=== PATIENT | male | born 1955 | race Caucasian/White ===

== ENCOUNTER 2017-11-17 16:17 | Emergency (ER) | payer MEDICAID ==
[~2017-11-17 16:17] MED LIST: IBUPROFEN
== END 2017-11-17 17:14 | disposition left against medical advice (07) ==
LOC: ED 17:00
DX: M79.671 Pain in right foot (principal); Z53.21 Procedure and treatment not carried out due to patient leaving prior to being seen by health care provider

== ENCOUNTER 2018-01-02 11:08 | Emergency (ER) | payer MEDICAID ==
[~2018-01-02] VITALS: Ht 175.3 cm; Wt 87.2 kg
[2018-01-02] MEDS ORDERED: HYDR25TA6 PO (12:07)
[2018-01-02] MEDS ORDERED: IBUP200C8 PO (12:08)
[2018-01-02 12:28] VITALS: BP 157/107
== END 2018-01-02 12:37 | disposition home or self-care (01) ==
LOC: ED 11:39
DX: M72.2 Plantar fascial fibromatosis (principal); Z87.891 Personal history of nicotine dependence
CPT/HCPCS: 99283

== ENCOUNTER 2020-02-08 04:47 | Emergency (ER) | payer MEDICAID ==
[~2020-02-08] VITALS: Ht 175.3 cm; Wt 78.8 kg
[~2020-02-08 04:47] MED LIST changes: +HYDR25TA6 PO; +IBUP200C8 PO
[2020-02-08 06:00] LABS: BASOPHILS % (AUTO) 2 % (0-1); EOSINOPHILS % (AUTO) 2 % (1-7); LYMPHOCYTES % (AUTO) 23 % (22-44); MEAN CORPUSCULAR HEMOGLOBIN 31.6 pg (27.5-34.5); MEAN CORPUSCULAR HGB CONC 34.3 g/dL (33.2-36.2); MONOCYTES % (AUTO) 10 % (2-9); NEUTROPHILS % (AUTO) 63 % (42-75); PLATELET COUNT 136 x10^3/uL (130-400); RED BLOOD COUNT 4.29 x10^6/uL (4.38-5.82); RED CELL DISTRIBUTION WIDTH 13.3 % (9.4-14.8)
[2020-02-08 06:07] LABS: MD NO
[2020-02-08 06:08] LABS: ALANINE AMINOTRANSFERASE 65 U/L (12-78); ALBUMIN 3.6 g/dL (3.4-5.0); ANION GAP 3 mmol/L (5-15); CALCIUM 8.7 mg/dL (8.5-10.1); CHLORIDE 110 mmol/L (98-107); CREATININE 1.07 mg/dL (0.7-1.3)
[2020-02-08 06:13] LABS: ALKALINE PHOSPHATASE 61 U/L (45-117); BILIRUBIN,TOTAL 0.4 mg/dL (0.2-1.0); TOTAL PROTEIN 7.6 g/dL (6.4-8.2); TROPONIN I < 0.015 ng/mL (0.000-0.045)
[2020-02-08 06:37] VITALS: BP 130/65
[2020-02-08] MEDS ORDERED: NEO/POLY/HC EAR SUSP 10ML RIGHT EAR ONE (07:47)
--- NOTE | 2020-02-08 07:57 | NUR ---
First contact with pt, assume care at this time. Sent pharm request for med. all questions answered.
== END 2020-02-08 08:50 | disposition home or self-care (01) ==
LOC: ED 07:32
DX: H92.21 Otorrhagia, right ear (principal); R94.31 Abnormal electrocardiogram [ECG] [EKG]; I10 Essential (primary) hypertension; Z87.891 Personal history of nicotine dependence; R05 Cough
CPT/HCPCS: 36415; 71045; 80053; 84484; 85025; 93005; 99285

== ENCOUNTER 2020-02-09 08:18 | Emergency (ER) | payer MEDICAID ==
[~2020-02-09] VITALS: Ht 175.3 cm; Wt 73.5 kg
[2020-02-09 08:27] VITALS: BP 146/90
== END 2020-02-09 09:11 | disposition home or self-care (01) ==
LOC: ED 09:00
DX: H66.001 Acute suppurative otitis media without spontaneous rupture of ear drum, right ear (principal)
CPT/HCPCS: 99283